=== PATIENT | female | born 2000 | race Caucasian/White ===

== ENCOUNTER 2019-07-31 16:40 | Emergency (ER) | payer SELFPAY ==
[2019-07-31] MEDS ORDERED: Ondansetron INJ* 2 MG/ML VIAL IV ONE (16:54)
[2019-07-31] MEDS ORDERED: NS 0.9% 1000 ML** 1,000 ML IV ONE (16:54)
--- NOTE | 2019-07-31 16:57 | ED ---
Abdominal Pain/Female - HPI Summary HPI Summary: This patient is a 19 year old F presenting to ED with a chief complaint of vomiting since 1430 today. Patient recently had a sinus infection and was placed on a steroid pack but not antibiotics. She has been on the steroid pack for the past 4-5 days. When she was diagnosed with the sinus infection, patient had a stuffy nose and felt like she had a glob of mucus in her throat. She did not have a headache but had intermittent periods of warmth and cold. Patients last menstrual cycle was started on July 04 2019. Patient is on control. Now, the patient has been vomiting mucus x8 since 1430 today. She has not had these symptoms before when taking steroids. Patient reports abdominal pain described as a stomachache as if something is in there has to get out. She reports a sore throat. Patient denies diarrhea. The patient rates the pain 8 /10 in severity. Symptoms aggravated by nothing. Symptoms alleviated by nothing. - History of Current Complaint Chief Complaint: EDNauseaVomitDiarrh Stated Complaint: VOMITING PER PT Time Seen by Provider: 07/31/19 16:47 Hx Obtained From: Patient Onset/Duration: Sudden Onset, Lasting Hours - Since 1430 today, Still Present Timing: Frequency Of Episodes - Vomiting x8 Severity Initially: Severe Severity Currently: Severe Pain Intensity: 8 Pain Scale Used: 0-10 Numeric Location: Diffuse Character: Other: - Aching Aggravating Factor(s): Nothing Alleviating Factor(s): Nothing Associated Signs and Symptoms: Positive: Nausea, Vomiting. Negative: Diarrhea Allergies/Adverse Reactions: Allergies Allergy/AdvReac Type Severity Reaction Status Date / Time No Known Allergies Allergy Verified 07/31/19 16:43 PMH/Surg Hx/FS Hx/Imm Hx Endocrine/Hematology History: Denies: Hx Diabetes Cardiovascular History: Denies: Hx Hypercholesterolemia, Hx Hypertension Sensory History: Denies: Hx Legally Blind, Hx Deafness Opthamlomology History: Denies: Hx Legally Blind EENT History: Denies: Hx Deafness - Surgical History Surgery Procedure, Year, and Place: [place] teeth. Deviated septum bilaterally Infectious Disease History: No Infectious Disease History: Denies: Traveled Outside the [place] in Last 30 Days - Family History Known Family History: Negative: Cardiac Disease, Hypertension, Diabetes - Social History Alcohol Use: None Hx Substance Use: No Substance Use Type: Reports: None Hx Tobacco Use: No Smoking Status (MU): Never Smoked Tobacco Review of Systems Constitutional: Other - Intermittent periods of warmth and cold Positive: Sore Throat Positive: Abdominal Pain - Stomachache, Vomiting, Nausea. Negative: Diarrhea All Other Systems Reviewed And Are Negative: Yes Physical Exam - Summary Physical Exam Summary: VITAL SIGNS: Reviewed. GENERAL: Patient is a well-developed and nourished female who is lying comfortable in the stretcher. Patient is not in any acute respiratory distress. HEAD AND FACE: Normocephalic and atraumatic. EYES: PERRLA, EOMI x 2, No injected conjunctiva. EARS: Hearing grossly intact. Ear canals and tympanic membranes are WNL. MOUTH: Esophageal erythema NECK: Supple, trachea is midline, no adenopathy, no JVD. CHEST: Symmetric, no tenderness at palpation. LUNGS: Clear to auscultation bilaterally. No wheezing or crackles. CVS: RRR, S1 and S2 present, no murmurs or gallops appreciated. ABDOMEN: Some diffuse abdominal tenderness, no rebound or guarding, abdomen is soft. EXTREMITIES: FROM in all major joints, no edema, no cyanosis or clubbing. NEURO: Alert and oriented x 3. No acute neurological deficits. Speech is normal. SKIN: Dry and warm. Triage Information Reviewed: Yes Vital Signs On Initial Exam: Initial Vitals Temp Pulse Resp BP Pulse Ox 97.4 F 107 16 123/84 99 07/31/19 16:42 07/31/19 16:42 07/31/19 16:42 07/31/19 16:42 07/31/19 16:42 Vital Signs Reviewed: Yes Diagnostics - Vital Signs Vital Signs Temp Pulse Resp BP Pulse Ox 07/31/19 16:42 97.4 F 107 16 123/84 99 - Laboratory Result Diagrams: 07/31/19 17:06 07/31/19 17:06 Lab Statement: Any lab studies that have been ordered have been reviewed, and results considered in the medical decision making process. Re-Evaluation - Re-Evaluation First Eval Re-Evaluation Time: 18:32 Change: Improved Comment: Patient is feeling much better. Discussed results with patient. Patient will be discharged home w dx of nausea and vomiting. Patient understands and agrees with this plan. Abdominal Pain Fem Course/Dx - Course Course Of Treatment: This patient is a 19 year old F presenting to ED with a chief complaint of vomiting since 1430 today. Patient recently had a sinus infection and was placed on a steroid pack but not antibiotics. She has been on the steroid pack for the past 4-5 days. When she was diagnosed with a sinus infection, patient had a stuffy nose and felt like she had a glob of mucus in her throat. She did not have a headache but had intermittent periods of warmth and cold. Patients last menstrual cycle was started on July 04 2019. Patient is on control. Now, the patient has been vomiting mucus x8 since 1430 today. She has not had these symptoms before when taking steroids. Patient reports abdominal pain described as a stomach ache as if something is in there has to get out. She reports a sore throat. Patient denies diarrhea. The patient rates the pain 8/10 in severity. Symptoms aggravated by nothing. Symptoms alleviated by nothing. Blood work without any significant abnormality except for WBCs of 18.3 however the patient has been taking prednisone and has nausea and vomiting. The potassium level is 3.3 for which the patient was given potassium chloride. Glucose 121, and a test is negative. The patient hasnt been able to give any urine. Patient was given IV fluids and Zofran for nausea and vomiting and the symptoms have resolved. At this point the patient is hemodynamically stable, alert and oriented 3. Patient is able to tolerate fluids by mouth without any nausea and vomiting. Therefore the patient was discharged home with follow-up with PCP. - Diagnoses Provider Diagnoses: Nausea and vomiting Discharge ED - Sign-Out/Discharge Documenting (check all that apply): Patient Departure - Discharge Patient Received Moderate/Deep Sedation with Procedure: No - Discharge Plan Condition: Stable Disposition: HOME Prescriptions: Ondansetron TAB* [Zofran 4 MG Tab*] 4 mg PO Q6H PRN #10 tab PRN Reason: Nausea Patient Education Materials: Acute Nausea and Vomiting (ED) Referrals: [facility] [Outside] - 3 Days Additional Instructions: FOLLOW UP WITH YOUR PRIMARY CARE PROVIDER IN 3 DAYS. RETURN TO THE ED FOR ANY WORSENING OR NEW SYMPTOMS. - Billing Disposition and Condition Condition: STABLE Disposition: Home - Attestation Statements Document Initiated by Scribe: Yes Documenting Scribe: Wellington Dick Provider For Whom Scribe is Documenting (Include Credential): Shawn Awad MD Scribe Attestation: I, Wellington Dick, scribed for Shawn Awad MD on 07/31/19 at 1848. Scribe Documentation Reviewed: Yes Provider Attestation: The documentation as recorded by the scribe, Wellington Dick accurately reflects the service I personally performed and the decisions made by me, Shawn Awad MD Status of Scribe Document: Viewed
[2019-07-31 17:13] LABS: ABS Eosinophils 0.1 10^3/ul (0-0.6); ABS Lymphocytes 1.6 10^3/ul (1.0-4.8); ABS Monocytes 0.5 10^3/ul (0-0.8); Eosinophil % 0.6 %; Hematocrit 41 % (35-47); Hemoglobin 14.6 g/dL (12.0-16.0); Mean Corpuscular HGB Conc 35 g/dL (31-36); Mean Corpuscular Hemoglobin 30 pg (27-31); Mean Corpuscular Volume 86 fL (80-97); Mean Platelet Volume 7.4 fL (7.4-10.4); Platelet Count 362 10^3/uL (150-450); Red Cell Distribution Width 12 % (10-15); White Blood Count 18.3 10^3/uL (3.5-10.8)
[2019-07-31 17:31] LABS: ALT 19 U/L (7-52); AST 19 U/L (13-39); Albumin 4.6 g/dL (3.2-5.2); Albumin/Globulin Ratio 1.4 (1-3); Alkaline Phosphatase 63 U/L (34-104); Anion Gap 10 mmol/L (2-11); Blood Urea Nitrogen 12 mg/dL (6-24); C Reactive Protein 10.37 mg/L (<8.01); CO2 Carbon Dioxide 22 mmol/L (22-32); Calcium 10.2 mg/dL (8.6-10.3); Chloride 104 mmol/L (101-111); EGFR African American 109.6 (>60); EGFR Non-African American 90.5 (>60); Globulin 3.4 g/dL (2-4); Glucose 121 mg/dL (70-100); Potassium 3.3 mmol/L (3.5-5.0); Sodium 136 mmol/L (135-145)
[2019-07-31 17:37] LABS: HCG Pregnancy < 0.60 mIU/mL
[2019-07-31] MEDS ORDERED: Potassium Chlor TAB* 20 MEQ TAB.ER PO ONE (18:37)
[2019-07-31 18:49] VITALS: BP 127/79
== END 2019-07-31 18:47 | disposition home or self-care (01) ==
LOC: ED 16:40
DX: R11.2 Nausea with vomiting, unspecified (principal)
CPT/HCPCS: 36415; 80053; 84702; 85025; 86140; 96361; 96374; 99283; A9270-GY; J2405